=== PATIENT | male | born 1965 | race African-American/Black ===

== ENCOUNTER → 2020-02-11 | Outpatient (CLI) | payer OTHER ==
--- NOTE | 2020-02-11 13:45 | RAD ---
EXAMINATION: KNEE RIGHT 2V CLINICAL HISTORY: Reason: RHEUMATOID AND OSTEOARTHRITIS IN BOTH KNEES. PAIN RIGHT KNEE. / Spl. Instructions: / History: TECHNIQUE: KNEE RIGHT 2V Number of different views (projections): 2 COMPARISON: None FINDINGS: Mild medial compartment narrowing. Tricompartmental small marginal osteophytes. No acute fracture. No marginal erosions. Small superior and inferior patellar enthesophytes. Partially visualized femoral intramedullary shola. No joint effusion. IMPRESSION: Mild degenerative changes in the medial compartment. Electronically signed by: Gigi Lyman DO (02/11/2020 1:43 PM) [id number]
== END | disposition home or self-care (01) ==
LOC: RAD 12:32
PROVIDERS: ATTEND Anesthesiology Pain Medicine
DX: M17.11 Unilateral primary osteoarthritis, right knee (principal); M25.761 Osteophyte, right knee; M76.891 Other specified enthesopathies of right lower limb, excluding foot
CPT/HCPCS: 73560